=== PATIENT | female | born 1990 | race Caucasian/White ===

== ENCOUNTER 2021-09-11 22:27 | Emergency (ER) | payer BC ==
[~2021-09-11] VITALS: Ht 175.3 cm; Wt 58.5 kg
[2021-09-11 23:07] VITALS: BP 117/75
--- NOTE | 2021-09-11 23:42 | NUR ---
COVID, INFLUENZA, AND STREP SWABS DONE AND SENT TO LAB
--- NOTE | 2021-09-11 23:42 | NUR ---
Patient does not wish to proceed with medical care recommended by Dr. Ponce. Patient given information related to possible complications, up to and including , which could occur as a result of leaving the hospital at this time. Patient verbalizes understanding of risks involved due to leaving against medical advice. Patient has signed AMA form.
[2021-09-12] MEDS ORDERED: IBUPROFEN 400 MG TABLET PO ONE
== END 2021-09-11 23:48 | disposition left against medical advice (07) ==
LOC: ER 22:27
DX: R69 Illness, unspecified (principal); Z20.822 Contact with and (suspected) exposure to COVID-19; Z53.29 Procedure and treatment not carried out because of patient's decision for other reasons
CPT/HCPCS: 87070; 87426; 87804; 87880; 99283; C9803; 86403-TC